=== PATIENT | female | born 1960 | race Caucasian/White ===

== ENCOUNTER → 2018-08-11 18:10 | Outpatient (CLI) | payer OTHER, SELFPAY ==
--- NOTE | 2018-08-11 | DI.MRI.S_ITS ---
PROCEDURE: MR HIP LT WO CON INDICATIONS: LEFT HIP PAIN TECHNIQUE: Noncontrast coronal T1 spin echo and STIR through the bony pelvis. Coronal and axial T2 fast spin echo with fat saturation, sagittal T1 spin echo, and oblique axial T2 fast spin echo with fat saturation through the hip. COMPARISON: [facility] Outside Film, CR, XR PELVIS WITH LATERAL HIP LEFT, 07/17/2018, 15:48. FINDINGS: Image quality: Excellent. Bones and joints: Bone marrow of the pelvic ring and proximal femurs demonstrate normal overall signal. No bone contusions or fractures. There are degenerative subchondral cysts within the superior left acetabulum. No avascular necrosis of the femoral heads. The visualized lower lumbar spine appears normally aligned. Tendons and ligaments: The gluteus medius and minimus tendons appear intact, with mild peritendinous edema at the greater trochanter. No discrete bursal fluid collection. The adjacent proximal iliotibial band also appears intact. The iliopsoas tendon appears intact, without adjacent bursal fluid collections or evidence for impingement syndrome. The origin of the hamstring tendon is intact at the ischial tuberosity, as well as the associated sacrotuberous ligament. The straight and reflected heads of the rectus femoris muscle origin appear intact, as well as the conjoint tendon. The ligamentum teres appears attenuated which may represent sequelae of a mild to moderate sprain or chronic degeneration. Labrum and cartilage: There is mild degenerative tearing in the superior labrum. Cartilage surface of the femoral head demonstrates [id number] superior and thinning. The alpha angle of the femur is within normal limits at less than 55 degrees. Soft tissues: Visualized muscles demonstrate normal bulk and internal signal. Quadratus femoris muscle demonstrates no internal edema to suggest ischiofemoral impingement. The proximal sciatic neurovascular bundle appears normal adjacent to the hamstring tendons. No free pelvic fluid. Bladder wall thickness is normal. Genitourinary structures and bowel loops appear normal where visualized. IMPRESSION: 1. Mild degenerative tearing of the anterosuperior labrum. 2. [id number] cartilage thinning superiorly with degenerative subchondral cysts in the superior labrum suggestive of chondral fissuring. Dictated by: Delfino Boo M.D. on 08/12/2018 at 10:41 Approved by: Delfino Boo M.D. on 08/12/2018 at 10:47
== END ==
PROVIDERS: Visit Provider Orthopaedic Surgery
DX: M25.552 Pain in left hip (principal); S73.192A Other sprain of left hip, initial encounter
CPT/HCPCS: 73721

== ENCOUNTER 2019-06-15 11:30 | Day surgery (SDC) | payer OTHER, SELFPAY ==
[2019-06-15] VITALS (7 sets, daily range): BP systolic 128–164; BP diastolic 71–79; PULSE 47–57; RESP 15–16; TEMP 36.3–37.3; O2SAT 96–100; BMI 40.6
[2019-06-15] MEDS: SODIUM CHLORIDE 0.9% 1,000 ML 200 ML IV (12:11)
--- NOTE | 2019-06-15 12:27 | PM.HP.1 ---
History of Present Illness History of Present Illness Date Patient Seen: 06/15/19 Time Patient Seen: 12:28 Chief complaint: [id number] Narrative: Patient presents for colorectal screening. They had a prior colonoscopy 10 years ago which was normal.. No personal or family history of colon cancer. On further history denies any recent gastrointestinal symptoms. No nausea, vomiting, abdominal pain, loss of appetite, unexplained weight loss, change in bowel habits, diarrhea, constipation, melena, hematochezia, or bright red blood per rectum. Patient History Medical History Atrial fibrillation (Inactive) Atrial fibrillation with normal ventricular rate (Inactive) Atypical chest pain (Inactive) Chest pain (Inactive) Chronic anticoagulation (Inactive) Hematuria (Inactive) Surgical History H/O cardiac radiofrequency ablation (Acute) Family & Social History Social History: household members spouse Tobacco & Substance use: Smoking Status Never smoker alcohol intake never Substance Use Type does not use Meds Home Medications and Allergies Home Medications Medication Instructions Recorded Confirmed Type Eliquis 5 mg PO BID #0 12/21/15 06/15/19 History multivitamin [Multiple Vitamins] 1 tab PO QDAY #0 01/30/17 06/15/19 History pantoprazole 20 mg PO QDAY #0 01/30/17 06/15/19 History amlodipine 5 mg PO DAILY 06/15/19 06/15/19 History aripiprazole 2 mg PO DAILY 06/15/19 06/15/19 History bupropion HCl 300 mg PO QAM 06/15/19 06/15/19 History dofetilide 125 mcg PO Q12H 06/15/19 06/15/19 History lisinopril 40 mg PO DAILY 06/15/19 06/15/19 History Allergies Allergy/AdvReac Type Severity Reaction Status Date / Time No Known Drug Allergies Allergy Verified 06/15/19 11:51 Review of Systems Review of Systems Narrative: A 10 point review of systems is negative except as noted in the HPI Exam Vital Signs (past 8 hours): - 06/15/19 11:58 Temperature 97.4 F L Pulse Rate 57 L Respiratory Rate 15 Blood Pressure 164/79 H Pulse Oximetry 99 Oxygen Delivery Method Room Air Narrative Exam Narrative: General-no acute distress, well nourished HEENT-moist mucous membranes, no scleral icterus Neck-supple, no lymphadenopathy Chest- non labored respirations, clear to auscultation bilaterally Cardiac-regular rate no peripheral edema Abdomen-soft, nontender, non distended Extremities-warm, well perfused Neurological-alert and oriented, no focal deficits Assessment & Plan Assessment and plan (1) Screening for colon cancer: Current visit: Yes Status: Acute Assessment & Plan narrative: The patient requires colorectal screening and colonoscopy is recommended. Technical details were discussed. Risks, benefits, alternatives explained. Risks including but not limited to myocardial infarction, aspiration, bleeding, pain, missed lesion, incomplete examination, need for further radiographic studies, colonic perforation, and need for major abdominal surgery were discussed. All questions were answered to their satisfaction, and they are in agreement with this plan.
[2019-06-15] MEDS: MIDAZOLAM 5 MG/5 ML VIAL IV (12:32)
[2019-06-15] MEDS: fentaNYL 250 MCG/5 ML INJ IV (12:33)
--- NOTE | 2019-06-15 13:15 | PM.OP.ENDO ---
Operative Date/Time/Diagnoses Date of procedure: 06/15/19 Time of procedure: 13:15 Pre-op diagnosis: Screening colonoscopy Post-op diagnosis: same Procedure & Clinicians Study performed: Colonoscopy Same procedure as scheduled: Yes Indications: 58-year-old female last colonoscopy 5 years ago with adenomatous polyps presents for screening Surgeon: Rigo Chavira Procedure Notes SCOAP/Timeout: Performed Procedure in detail: Patient placed in left lateral decubitus position. Time out was performed. Procedural sedation was administered with Versed and Fentanyl. A rectal exam demonstrated no external hemorrhoids no internal masses. Colonoscopy scope was placed into the rectum and advanced through the colon to the cecum. The ileocecal valve was identified. The scope was then slowly withdrawn examining colon thoroughly in all directions. The colonoscopy was notable for the following 1. No masses polyps 2. Grade 1 internal hemorrhoids 3. Quality of prep moderate Scope withdrawal time: 17 Sedation minutes: 43 Findings: internal hemorrhoids Specimen(s): none sent Complications: none Impression: Normal colonoscopy Post-procedure Recommendations: Colonscopy in 10 years Disposition: same day surgery
--- NOTE | 2019-06-15 13:58 | SUR.PHASEI ---
Care assumed from Casey Bernal RN
--- NOTE | 2019-06-15 14:12 | SUR.PHASEII ---
Pt brought to [facility], bed down, locked. brought in. D/C instructions discussed, both voiced an understanding. Pt and both have flat affects. Pt making minimal eye contact.
--- NOTE | 2019-06-15 14:50 | SUR.PHASEII ---
Pt dressed and ready to go, then became nauseated and dry heaving. Dr. Chavira left for the day per his office staff. Dr. Gaytan paged.
--- NOTE | 2019-06-15 15:26 | SUR.PHASEII ---
Patient c/o nausea but refusing any nausea medication. Patient tearful but declines to speak with this nurse about any existing issues. Asked patient if she felt safe at home with her and patient states, yes. Discharged patient home with in stable condition.
== END 2019-06-15 15:29 | disposition home or self-care (01) ==
LOC: ENDO 11:31
PROVIDERS: Visit Provider Surgery
PROC: 0DJD8ZZ Inspection of Lower Intestinal Tract, Via Natural or Artificial Opening Endoscopic (ICD-10-PCS; CPT 45378; principal; 2019-06-15 13:00)
DX: Z12.11 Encounter for screening for malignant neoplasm of colon (principal); Z86.010 Personal history of colon polyps; K64.0 First degree hemorrhoids
CPT/HCPCS: 45378; 99152; J2250; J3010

== ENCOUNTER 2019-07-03 17:30 | Emergency (ER) | payer OTHER, SELFPAY ==
[2019-07-03 17:43] VITALS: BP 136/65; PULSE 67; PULSE 69; RESP 14; RESP 16; TEMP 36.9; O2SAT 100; O2SAT 99
--- NOTE | 2019-07-03 17:44 | ED_ITS ---
HPI - Extremity Injury (Lower) General Chief Complaint: Extremity Injury, Lower Stated Complaint: right ankle injury Time Seen by Provider: 07/03/19 17:43 Source: patient and family Mode of arrival: Ambulatory Limitations: no limitations History of Present Illness HPI Narrative: 58-year-old female nonsmoker with history of hypertension presents with family in the chief complaint of right ankle pain after a mechani stoney injury this afternoon. 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 She denies any numbness, tingling or weakness. She denies any other injury. She has no history of ankle pain or injury prior. She admits to worsening symptoms with ambulation and improvement with rest. MD complaint: ankle injury Onset (ago): hour(s) Type of Injury: inversion Place: street/outdoors Severity: moderate Relieving factors: rest Related Data Home Medications Medication Instructions Recorded Confirmed Eliquis 5 mg PO BID #0 12/21/15 06/15/19 multivitamin [Multiple Vitamins] 1 tab PO QDAY #0 01/30/17 06/15/19 pantoprazole 20 mg PO QDAY #0 01/30/17 06/15/19 amlodipine 5 mg PO DAILY 06/15/19 06/15/19 aripiprazole 2 mg PO DAILY 06/15/19 06/15/19 bupropion HCl 300 mg PO QAM 06/15/19 06/15/19 dofetilide 125 mcg PO Q12H 06/15/19 06/15/19 lisinopril 40 mg PO DAILY 06/15/19 06/15/19 Allergies Allergy/AdvReac Type Severity Reaction Status Date / Time No Known Drug Allergies Allergy Verified 07/03/19 17:45 Review of Systems Constitutional Constitutional: Denies chills, Denies fatigue, Denies fever(s), Denies frequent falls, Denies lethargy and Denies weakness Eyes Eyes: Denies change in vision, Denies eye discharge, Denies irritation and Denies loss of vision ENT Ears, Nose, Mouth, and Throat: Denies change in voice, Denies dizziness, Denies neck pain, Denies sore throat and Denies throat swelling Cardiovascular Cardiovascular: Denies chest pain, Denies irregular heart rhythm, Denies lightheadedness, Denies palpitations, Denies dyspnea, Denies dyspnea on exertion and Denies orthopnea Respiratory Respiratory: Denies cough, Denies dyspnea, Denies dyspnea on exertion and Denies wheezing Gastrointestinal Gastrointestinal: Denies abdominal pain, Denies change in bowel habits, Denies diarrhea, Denies nausea and Denies vomiting Genitourinary Genitourinary: Denies hematuria, Denies flank pain, Denies urinary incontinence and Denies urinary urgency Musculoskeletal Musculoskeletal: Denies back pain, Reports limited range of motion, Denies muscle weakness, Denies neck pain, Denies numbness and Denies tingling Integumentary/Breasts Skin/Breast: Denies pruritus, Denies erythema, Denies rash and Denies wounds Neurologic Neurologic: Denies behavioral changes, Denies confusion, Denies dizziness, Denies frequent falls, Denies loss of vision, Denies numbness, Denies tingling and Denies weakness Psychiatric Psychiatric: Denies anxiety, Denies behavioral changes, Denies confusion, Denies depression, Denies homicidal ideation and Denies suicidal ideation Endocrine Endocrine: Denies fatigue, Denies flushing and Denies palpitations Hematologic/Lymphatic Hematologic/Lymphatic: Denies easy bruising Allergic/Immunologic Allergic/Immunologic: Denies urticaria, Denies throat swelling and Denies wheezing Patient History Medical History Atrial fibrillation (Inactive) Atrial fibrillation with normal ventricular rate (Inactive) Atypical chest pain (Inactive) Chest pain (Inactive) Chronic anticoagulation (Inactive) Hematuria (Inactive) Surgical History H/O cardiac radiofrequency ablation (Acute) Social History household members: spouse Smoking Status: Never smoker alcohol intake: never Smoking Status: Never smoker Substance Use Type: does not use Exam Narrative Exam Narrative: GEN: AOx3 and in mild distress EYES: Pupils are equal, round, and reactive to light and accommodation. Extraoccular muscles are intact bilaterally. There is no subconjunctival hemorrhage or exudate. CHEST: Lungs are clear to auscultation bilaterally and free of wheezes, rales, or rhonchi. Heart rate is regular rhythm, there are no murmurs, clicks, rubs, or gallops. There is no chest wall tenderness. ABD: Abdomen is soft and nontender. There is no guarding or rebound. Bowel sounds are normal in all 4 quadrants. There is no mass or organomegaly. EXT: Full, mildly painful range of motion of right ankle with some tenderness to palpation of the lateral malleolus. Closed, isolated and neurovascularly intact SKIN: Warm, pink, and dry. No erythema or rash Initial Vital Signs Initial Vital Signs: Vital Signs Temperature 98.4 F 07/03/19 17:43 Pulse Rate 69 07/03/19 17:43 Respiratory Rate 16 07/03/19 17:43 Blood Pressure 136/65 07/03/19 17:43 Pulse Oximetry 99 07/03/19 17:43 Procedures Orthopedic Splinting/Casting Injury #1: Side: right Lower Extremity Injury Location: ankle Lower Extremity Immobilizer: Joseluis wrap Post splinting neuro exam: intact Post splinting vascular exam: intact Placed by: Nursing Course Orders Ordered: ED Orders 07/03/19 17:46 XR ankle RT min 3V Stat Vital Signs Vital signs: Vital Signs - 8 hr 07/03/19 17:43 07/03/19 18:42 Temperature 98.4 F Pulse Rate 67 67 Respiratory Rate 14 18 Blood Pressure 136/65 128/58 L Blood Pressure [Right Arm] 136/65 Pulse Oximetry 100 99 MDM - Extremity Injury (Lower) Imaging Data ankle: Radiologist's Impression: [place] [address] XRay Report Signed Patient: Aylin Faye LMR#: [id number] : 1Acct:[id number] Age/Sex: 58 / FDate of Service: 07/03/19 Loc: ED Accession Number: [id number] Procedure: XR ankle RT min 3V Ordering Provider: Dio Pace D.O. PROCEDURE: XR ANKLE RT MIN 3V INDICATIONS: right ankle injury TECHNIQUE: 3 views of the ankle were acquired. COMPARISON: None. FINDINGS: Bones: No fractures or dislocations. Ankle mortise is normally aligned. No suspicious bony lesions. Plantar calcaneal bone spur. Soft tissues: No tibiotalar joint effusion. Achilles tendon appears normal. IMPRESSION: No fracture. No acute osseous lesion. If symptoms and/or clinical suspicion for pathology persists, further assessment with repeat radiographs (7-10 days) or advanced imaging (e.g. CT, MRI or bone scan) may be helpful. Dictated by: Lashonda Jett MD, PhD on 07/03/2019 at 18:08 Approved by: Lashonda Jett MD, PhD on 07/03/2019 at 18:09 Discharge Plan Departure Patient Disposition: Home Clinical Impression: Ankle sprain and strain Discharge Date/Time: 07/03/19 18:43 Instructions: DI for Ankle Sprain Activity Restrictions/Additional Instructions: *You have been diagnosed with [right ankle sprain] *What to do: *Take medications as directed *Follow up with your primary care provider in 2-3 days, call for an appointment. Let them know you were seen in the Emergency Department and that we ask that you be seen in follow up *Return to ER if you should have any new, worsening or concerning symptoms Prescriptions: No Action Eliquis 5 MG tablet 5 mg PO BID Qty: 0 RF: 0 multivitamin [Multiple Vitamins] 1 EACH tablet 1 tab PO QDAY Qty: 0 RF: 0 pantoprazole 20 MG tablet,delayed release (DR/EC) 20 mg PO QDAY Qty: 0 RF: 0 dofetilide 125 mcg Capsule 125 mcg PO Q12H RF: 0 amlodipine 5 mg Tablet 5 mg PO DAILY RF: 0 lisinopril 40 mg Tablet 40 mg PO DAILY RF: 0 bupropion HCl 300 mg Tablet Extended Release 24 Hr 300 mg PO QAM RF: 0 aripiprazole 2 mg Tablet 2 mg PO DAILY RF: 0 Referrals: Ghada Holland [Primary Care Provider] - Stand Alone Forms: Work Release Note
[2019-07-03 18:42] VITALS: BP 128/58; PULSE 67; RESP 18; O2SAT 99
== END 2019-07-03 18:43 | disposition home or self-care (01) ==
PROVIDERS: Emergency Provider Emergency Medicine; PCP Internal Medicine
DX: S93.401A Sprain of unspecified ligament of right ankle, initial encounter (principal); S96.911A Strain of unspecified muscle and tendon at ankle and foot level, right foot, initial encounter
CPT/HCPCS: 73610; 99282; 99283

== ENCOUNTER 2020-02-28 14:53 | Emergency (ER) | payer OTHER, SELFPAY ==
[2020-02-28 14:55] VITALS: BP 184/77; PULSE 60; RESP 17; TEMP 36.5; O2SAT 100; BMI 40.3
--- NOTE | 2020-02-28 15:04 | DI.RAD.S_ITS ---
PROCEDURE: XR SHOULDER LT MIN 2V INDICATIONS: shoulder pain TECHNIQUE: 3 views of the shoulder were acquired. COMPARISON: [facility], CHEST 1 VIEW, 12/21/2015, 12:12. [facility], CHEST 1 VIEW, 06/06/2017, 19:32. [facility], CHEST 1 VIEW, 07/11/2017, 12:47. FINDINGS: Bones: No fractures or dislocations. The acromioclavicular joint is slightly incongruent appearance but appears similar to the prior chest x-ray studies. Visualized ribs appear intact. Soft tissues: There are calcifications along the distal rotator cuff compatible with calcific tendinitis. IMPRESSION: 1. No definite fracture or dislocation. 2. Calcific tendinitis of the distal rotator cuff. 3. Mildly incongruent appearance of the acromioclavicular joint may represent an anatomic variant or sequelae of a prior sprain. The findings are similar to the prior chest x-ray studies. Dictated by: Delfino Boo M.D. on 02/28/2020 at 14:26 Approved by: Delfino Boo M.D. on 02/28/2020 at 14:29
--- NOTE | 2020-02-28 16:14 | ED.UPPEXIN ---
HPI - Extremity Injury (Upper) General Chief Complaint: Extremity Injury, Upper Stated Complaint: left shoulder pain Time Seen by Provider: 02/28/20 15:32 Source: patient and family (Daughter) Mode of arrival: Ambulatory Limitations: no limitations History of Present Illness HPI narrative: This is a 59-year-old female who comes in with complaint of left shoulder pain. Patient states she has had intermittent pain for a prolonged period but over the last 1-2 weeks she has had significantly increased pain with popping with movement. She did see her primary care who did a physical exam she states that there was no imaging. They gave her muscle relaxant and Tylenol which she states has made her sleepy but otherwise not helping her pain. She is currently in a shoulder sling she does try to do some gentle [id number] exercises prescribed by her physician but states that it makes it hurt more. Patient states she has not had any swelling were extremity, no redness or other skin changes, no bruising. No recent trauma that she is aware of no remote trauma. She has not had any interventions to the shoulder. She describes it as particularly painful in the shoulder region but does have some muscle spasm and discomfort in the soft tissue of the trapezius area and down her arm. She denies any numbness tingling or weakness in the arm but has pain with movement the arm. She does not have any increased pain with movement of her neck. Related Data Home Medications Medication Instructions Recorded Confirmed Eliquis 5 mg PO BID #0 12/21/15 06/15/19 multivitamin [Multiple Vitamins] 1 tab PO QDAY #0 01/30/17 06/15/19 pantoprazole 20 mg PO QDAY #0 01/30/17 06/15/19 amlodipine 5 mg PO DAILY 06/15/19 06/15/19 aripiprazole 2 mg PO DAILY 06/15/19 06/15/19 bupropion HCl 300 mg PO QAM 06/15/19 06/15/19 dofetilide 125 mcg PO Q12H 06/15/19 06/15/19 lisinopril 40 mg PO DAILY 06/15/19 06/15/19 Previous Rx's Medication Instructions Recorded diclofenac sodium [Voltaren] 2 gram TOP QID PRN #20 gram 02/28/20 hydrocodone-acetaminophen [[place]] 1 tab PO Q6H PRN #10 tab 02/28/20 Allergies Allergy/AdvReac Type Severity Reaction Status Date / Time No Known Drug Allergies Allergy Verified 07/03/19 17:45 Patient History Medical History (Updated 02/28/20 @ 16:39 by Amy Brown DO) Atrial fibrillation (Inactive) Atrial fibrillation with normal ventricular rate (Inactive) Atypical chest pain (Inactive) Chest pain (Inactive) Chronic anticoagulation (Inactive) Hematuria (Inactive) Surgical History H/O cardiac radiofrequency ablation (Acute) Social History household members: spouse Smoking Status: Never smoker alcohol intake: never Smoking Status: Never smoker alcohol intake frequency: 0-2 drinks per day Substance Use Type: does not use Exam Narrative Exam Narrative: GENERAL: Alert and oriented x three, obese female in mild to moderate discomfort. HEENT: Head normocephalic, atraumatic, EOMI, pupils reactive, face symmetric, moist mucous membranes NECK: Supple, full range of motion CARDIOVASCULAR: Regular rate and rhythm without murmurs, rubs or gallops. RESPIRATORY: Breath sounds equal bilaterally, no wheezes rales or rhonchi. ABDOMEN: Soft, nontender. Normoactive bowel sounds all 4 quadrants. No guarding or rebound, rigidity, no mass : No CVA tenderness EXTREMITIES: Decreased range of motion of the left shoulder, patient has point tenderness over the AC joint on the left, she has some soft tissue discomfort although not as extreme in the trapezius and latissimus dorsi, she has some very mild pain in the deltoid region, she does not have any bony tenderness of the wrist, forearm or elbow, no tenderness of the C-spine, negative Spurling's, no clubbing or edema. [employer] is equal bilaterally. Neurovascularly intact with 2+ pulses bilaterally in the radial and normal sensation throughout. NEUROLOGICAL: Cranial nerves II through XII grossly intact. Moving all extremities SKIN: Warm, dry, no petechiae, no rashes or lesions. Initial Vital Signs Initial Vital Signs: Vital Signs Temperature 97.7 F 02/28/20 14:55 Pulse Rate 60 02/28/20 14:55 Respiratory Rate 17 02/28/20 14:55 Blood Pressure 184/77 H 10/11/20 14:55 Pulse Oximetry 100 10/11/20 14:55 Course Orders Ordered: ED Orders 02/28/20 15:04 XR shoulder LT min 2V Stat Discontinued Medications Hydrocodone Bitart/Acetaminophen ([place] 5/325) 1 tab PO NOW ONE Stop: 02/28/20 16:32 Last Admin: 02/28/20 16:44 Dose: 1 tab Documented by: LESLIE Vital Signs Vital signs: Vital Signs - 8 hr 02/28/20 14:55 02/28/20 16:44 Temperature 97.7 F Pulse Rate 60 64 Respiratory Rate 17 18 Blood Pressure 184/77 H 146/71 H Pulse Oximetry 100 100 MDM - Extremity Injury (Upper) Imaging Data shoulder xray: Radiologist's Impression: [address] [address] XRay Report Signed Patient: Aylin Faye LMR#: [id number] : 1Acct:[id number] Age/Sex: 59 / FDate of Service: 02/28/20 Loc: ED Accession Number: [id number] Procedure: XR shoulder LT min 2V Ordering Provider: Amy Brown D.O. PROCEDURE: XR SHOULDER LT MIN 2V INDICATIONS: shoulder pain TECHNIQUE: 3 views of the shoulder were acquired. COMPARISON: [facility], CHEST 1 VIEW, 12/21/2015, 12:12. [facility], CHEST 1 VIEW, 06/06/2017, 19:32. [facility], CHEST 1 VIEW, 07/11/2017, 12:47. FINDINGS: Bones: No fractures or dislocations. The acromioclavicular joint is slightly incongruent appearance but appears similar to the prior chest x-ray studies. Visualized ribs appear intact. Soft tissues: There are calcifications along the distal rotator cuff compatible with calcific tendinitis. IMPRESSION: 1. No definite fracture or dislocation. 2. Calcific tendinitis of the distal rotator cuff. 3. Mildly incongruent appearance of the acromioclavicular joint may represent an anatomic variant or sequelae of a prior sprain. The findings are similar to the prior chest x-ray studies. Dictated by: Delfino Boo M.D. on 02/28/2020 at 14:26 Approved by: Delfino Boo M.D. on 02/28/2020 at 14:29 MDM Narrative Medical decision making narrative: Discussed with patient suspect a more orthopedic finding, she does have some calcifications consistent with a tendinitis and also some changes on her x-ray consistent with her pain at the AC joint. Plan for a short course of narcotic pain medication, Voltaren topically as she does have a history of AFib and is on anticoagulants. Patient was given referral for Orthopedic surgery as well as follow-up with her primary care and we discussed the long-term she may need some additional imaging possibly. We did discuss the possibility of frozen shoulder which she was already aware of and that she should continue to do gentle movement as tolerated as well as icing as needed. Discharge Plan Departure Patient Disposition: Home Clinical Impression: AC joint pain Qualifiers: Laterality: left Qualified Code(s): M25.512 - Pain in left shoulder Left shoulder pain Qualifiers: Chronicity: unspecified Qualified Code(s): M25.512 - Pain in left shoulder Discharge Date/Time: 02/28/20 16:54 Instructions: DI for Shoulder Pain Activity Restrictions/Additional Instructions: Follow-up with your physician and/or orthopedic surgery in the next week. Call for an appointment. Continue home medications as prescribed. You may use Voltaren topically to the affected area as prescribed. If needed you may take 1-2 tablets [place] every 6 hours as needed for pain. This medication can make you very sleepy do not drive, perform hazardous activities or make any major decisions while taking this medication. It is also constipating so I would recommend taking a stool softener while taking it. OK to use ice pack on the affected body part. Use for 15-20 minutes each time, for 5-6x per day. If you develop worsening pain, numbness, tingling, discoloration of the affected body part, loosen sling, and either see your doctor for an urgent re-assessment, or return to the Emergency Department. Return to the Emergency Department for any new or worsening symptoms. Prescriptions: New hydrocodone-acetaminophen [[place]] 5-325 mg tablet 1 tab PO Q6H PRN (Reason: pain) Qty: 10 RF: 0 diclofenac sodium [Voltaren] 1 % gel 2 gram TOP QID PRN (Reason: pain) Qty: 20 RF: 0 No Action Eliquis 5 MG tablet 5 mg PO BID Qty: 0 RF: 0 multivitamin [Multiple Vitamins] 1 EACH tablet 1 tab PO QDAY Qty: 0 RF: 0 pantoprazole 20 MG tablet,delayed release (DR/EC) 20 mg PO QDAY Qty: 0 RF: 0 dofetilide 125 mcg Capsule 125 mcg PO Q12H RF: 0 amlodipine 5 mg Tablet 5 mg PO DAILY RF: 0 lisinopril 40 mg Tablet 40 mg PO DAILY RF: 0 bupropion HCl 300 mg Tablet Extended Release 24 Hr 300 mg PO QAM RF: 0 aripiprazole 2 mg Tablet 2 mg PO DAILY RF: 0 Referrals: Ghada Holland [Primary Care Provider] - Eduardo Ireland MD [Physician] - Stand Alone Forms: Work Release Note
[2020-02-28 16:44] VITALS: BP 146/71; PULSE 64; RESP 18; O2SAT 100
[2020-02-28] MEDS: HYDROCODONE/ACET 5/325 TABLET 1 TAB PO (16:44)
--- NOTE | 2020-02-28 16:54 | PC.NURSE ---
work note given to patient
== END 2020-02-28 16:54 | disposition home or self-care (01) ==
PROVIDERS: Emergency Provider Emergency Medicine; PCP Internal Medicine
DX: M25.512 Pain in left shoulder (principal)
CPT/HCPCS: 73030; 99283

== ENCOUNTER → 2020-10-31 15:26 | Outpatient (CLI) | payer OTHER, SELFPAY ==
--- NOTE | 2020-10-31 | DI.MRI.S_ITS ---
PROCEDURE: MR HIP LT WO CON INDICATIONS: Pain in left hip pain TECHNIQUE: Noncontrast coronal T1 spin echo and STIR through the bony pelvis. Coronal and axial T2 fast spin echo with fat saturation, sagittal T1 spin echo, and oblique axial T2 fast spin echo with fat saturation through the hip. COMPARISON: [facility], MR, MR HIP LT WO CON, 08/11/2018, 18:21. FINDINGS: Bones and joints: No fracture identified. Sacroiliac joints are unremarkable in signal intensity. There is lower lumbar spondylosis and facet arthropathy. No pathologic hip joint effusion. Bilateral hip joint degeneration with redemonstrated subchondral cystic change in the left acetabulum. No evidence of osteonecrosis. Tendons and ligaments: Minimal insertional gluteus medius and minimus tendinopathy with adjacent soft tissue edema. Proximal iliotibial band intact. Iliopsoas tendon intact. Mild thickening of the hamstring origin which is technically age indeterminate suggestive of low-grade tendinopathy. The straight and reflected heads of the rectus femoris muscle origin appear intact Ligamentum teres appears intact where visualized. Labrum: Ill-defined anterosuperior labral tear. There is an associated 3 mm paralabral cyst seen on image 12/7. Adjacent partial-thickness chondral loss is present as well as degenerative spurring and sclerosis in the acetabulum. The alpha angle of the femur is grossly within normal limits at less than 55 degrees, however suboptimal evaluation due to obliquity on the axial oblique pulse sequence. Soft tissues: Visualized muscles demonstrate normal bulk and internal signal. Quadratus femoris muscle normal. Proximal sciatic neurovascular bundle appears normal adjacent to the hamstring tendons. No free pelvic fluid. Bladder normal. Genitourinary structures and bowel loops appear normal where visualized. IMPRESSION: Anterosuperior labral tear, with associated 3 mm paralabral cyst. Adjacent partial-thickness chondral loss and degenerative changes in the acetabulum. Overall this appears grossly unchanged since the prior study, although the paralabral cyst is new. Mild hamstring origin tendinopathy, technically age indeterminate. No interval change Minimal insertional gluteus medius and minimus tendinopathy. This appears new since the prior study. Dictated by: Rajesh Guerrero M.D. on 10/31/2020 at 16:46 Approved by: Rajesh Guerrero M.D. on 10/31/2020 at 16:55
== END ==
PROVIDERS: PCP Internal Medicine; Referring Provider Internal Medicine; Visit Provider Internal Medicine
DX: M25.552 Pain in left hip (principal); S73.192A Other sprain of left hip, initial encounter; M24.852 Other specific joint derangements of left hip, not elsewhere classified
CPT/HCPCS: 73721

== ENCOUNTER 2021-01-18 00:14 | Emergency (ER) | payer OTHER, SELFPAY ==
[2021-01-18 00:47] VITALS: BP 159/72; PULSE 64; RESP 18; TEMP 36.6; O2SAT 100
--- NOTE | 2021-01-18 03:02 | ED.EXTPRO ---
HPI - Extremity Problem General Chief complaint: Extremity Problem,Nontraumatic Stated complaint: Leg pain Time Seen by Provider: 01/18/21 03:02 Source: patient Mode of arrival: Wheelchair Limitations: no limitations History of Present Illness HPI Narrative: 60-year-old woman with history of anxiety depression currently on Eliquis, hypertension with a known left labral tear as well as left hip osteoarthritis and is aware that she likely will need a hip replacement at some point in the near future. Apparently she woke up at 11:00 a.m. this evening with severe pain in the groin radiating to the mid thigh. She called 911 for transport to the emergency department because of the severe spasm. She did not try any [id number] pain medication. She stated that she has had similar episodes before however none have been quite this severe. She describes no fevers, no rashes, no unusual activity earlier in the day and no specific trauma to the hip in the last days. She has recently had no abdominal pain, chest pain, palpitations, vomiting or diarrhea Related Data Home Medications Medication Instructions Recorded Confirmed apixaban 5 mg tablet (Eliquis) 5 mg PO BID #0 12/21/15 06/15/19 multivitamin (Multiple Vitamins) 1 tab PO QDAY #0 01/30/17 06/15/19 pantoprazole 20 mg tablet,delayed 20 mg PO QDAY #0 01/30/17 06/15/19 release amlodipine 5 mg tablet 5 mg PO DAILY 06/15/19 06/15/19 aripiprazole 2 mg tablet 2 mg PO DAILY 06/15/19 06/15/19 bupropion HCl 300 mg 24 hr tablet, 300 mg PO QAM 06/15/19 06/15/19 extended release dofetilide 125 mcg capsule 125 mcg PO Q12H 06/15/19 06/15/19 lisinopril 40 mg tablet 40 mg PO DAILY 06/15/19 06/15/19 Previous Rx's Medication Instructions Recorded diclofenac sodium 1 % topical gel 2 gram TOP QID PRN #20 gram 02/28/20 (Voltaren) hydrocodone 5 mg-acetaminophen 325 1 tab PO Q6H PRN #10 tab 02/28/20 mg tablet ([place]) Allergies Allergy/AdvReac Type Severity Reaction Status Date / Time No Known Drug Allergies Allergy Verified 07/03/19 17:45 Review of Systems Review of Systems Narrative: Remainder of complete review of systems is otherwise unremarkable except for that included in the HPI. Patient History Medical History Atrial fibrillation Atrial fibrillation with normal ventricular rate Atypical chest pain Chest pain Chronic anticoagulation Hematuria Surgical History H/O cardiac radiofrequency ablation Social History household members: spouse Smoking Status: Never smoker alcohol intake: never Smoking Status: Never smoker alcohol intake frequency: 0-2 drinks per day Substance Use Type: does not use Exam Narrative Exam Narrative: General: Alert appropriate in no acute distress Respiratory: Able to speak in full sentences, no obvious respiratory distress Skin: No obvious rashes, warm and dry Neurologic: Grossly intact no obvious asymmetries or abnormalities Psych: appropriate insight and affect, cooperative Extremity: Left groin is examined. There is no reproducible pain, no inguinal hernia, no inguinal adenopathy, no rashes. No muscle spasm no abscess and no pain with internal external rotation of the hip. Initial Vital Signs Initial Vital Signs: Vital Signs Temperature 97.9 F 01/18/21 00:47 Pulse Rate 64 01/18/21 00:47 Respiratory Rate 18 01/18/21 00:47 Blood Pressure 159/72 H 01/18/21 00:47 Pulse Oximetry 100 01/18/21 00:47 Course Vital Signs Vital signs: Vital Signs - 8 hr 01/18/21 00:47 01/18/21 03:34 Temperature 97.9 F Pulse Rate 64 63 Respiratory Rate 18 18 Blood Pressure 159/72 H 149/74 H Pulse Oximetry 100 99 MDM - Extremity (Nontraumatic) MDM Narrative Medical decision making narrative: 60-year-old woman awoke from sleep with severe left groin pain that resolved spontaneously within approximately 2 hours. By the time of my exam in the emergency department she is completely pain-free. There is no evidence of inflammation, swelling to suggest DVT. No obvious abscess or cellulitis. No tenderness with internal or external rotation. No inguinal adenopathy. I do not have a full explanation for her pain however I am not finding any additional reason for further workup, imaging and no evidence of life-threatening findings at this time. As she is pain-free currently she is safe for home discharge. I encouraged her to follow-up with her primary care physician. Discharge Plan Departure Patient Disposition: Home Clinical Impression: Left groin pain Instructions: DI for Groin Strain Activity Restrictions/Additional Instructions: Thank you for coming in this evening The severe pain that you described in your inner thigh certainly sounds concerning. Your exam is very reassuring. There is no evidence of a hernia, infection, blood clot or acute nerve injury. I suspect that the pain is related to your degenerative hip arthritis and may be related to the labral tear that you have on that left side as well. The next time it happens I would recommend trying either ibuprofen or Tylenol to see if that can make a difference I would also recommend that you follow-up with your primary care physician. Prescriptions: No Action Eliquis 5 MG tablet 5 mg PO BID Qty: 0 RF: 0 multivitamin [Multiple Vitamins] 1 EACH tablet 1 tab PO QDAY Qty: 0 RF: 0 pantoprazole 20 MG tablet,delayed release (DR/EC) 20 mg PO QDAY Qty: 0 RF: 0 dofetilide 125 mcg Capsule 125 mcg PO Q12H RF: 0 amlodipine 5 mg Tablet 5 mg PO DAILY RF: 0 lisinopril 40 mg Tablet 40 mg PO DAILY RF: 0 bupropion HCl 300 mg Tablet Extended Release 24 Hr 300 mg PO QAM RF: 0 aripiprazole 2 mg Tablet 2 mg PO DAILY RF: 0 hydrocodone-acetaminophen [[place]] 5-325 mg tablet 1 tab PO Q6H PRN (Reason: pain) Qty: 10 RF: 0 diclofenac sodium [Voltaren] 1 % gel 2 gram TOP QID PRN (Reason: pain) Qty: 20 RF: 0 Referrals: Ghada Holland MD [Primary Care Provider] - Stand Alone Forms: Work Release Note
[2021-01-18 03:34] VITALS: BP 149/74; PULSE 63; RESP 18; O2SAT 99
== END 2021-01-18 03:35 | disposition home or self-care (01) ==
PROVIDERS: Emergency Provider Emergency Medicine; PCP Internal Medicine
DX: R10.30 Lower abdominal pain, unspecified (principal)
CPT/HCPCS: 99281

== ENCOUNTER 2021-06-10 11:58 | Emergency (ER) | payer OTHER, SELFPAY ==
[2021-06-10] VITALS (32 sets, daily range): BP systolic 108–133; BP diastolic 67–92; PULSE 58–137; RESP 9–22; TEMP 36.9; O2SAT 95–100; BMI 40.3
--- NOTE | 2021-06-10 12:11 | ED_ITS ---
HPI - General Adult General Chief complaint: Arrhythmia/Palpitations Stated complaint: Afib and chest discomfort Time Seen by Provider: 06/10/21 12:05 Source: patient Mode of arrival: EMS History of Present Illness HPI narrative: Patient is a 60-year-old female. Unknown history of paroxysmal atrial fibrillation. She is on Eliquis. She takes it twice a day. States she has not missed a dose in the past month. She is also on dofetilide. She states she did miss a dose of this last week. This morning she woke up and had mid sternal chest discomfort which she states is very consistent with when she goes into atrial fibrillation. She currently does not have the chest discomfort. Some lightheadedness. No shortness of breath. She states she cannot feel the palpitations currently. She has had cardioversions in the past. There have been instances where it passed cardioversions have not been successful. No interventions prior to arrival. Related Data Home Medications Medication Instructions Recorded Confirmed apixaban 5 mg tablet (Eliquis) 5 mg PO BID #0 12/21/15 06/15/19 multivitamin (Multiple Vitamins) 1 tab PO QDAY #0 01/30/17 06/15/19 pantoprazole 20 mg tablet,delayed 20 mg PO QDAY #0 01/30/17 06/15/19 release amlodipine 5 mg tablet 5 mg PO DAILY 06/15/19 06/15/19 aripiprazole 2 mg tablet 2 mg PO DAILY 06/15/19 06/15/19 bupropion HCl 300 mg 24 hr tablet, 300 mg PO QAM 06/15/19 06/15/19 extended release dofetilide 125 mcg capsule 125 mcg PO Q12H 06/15/19 06/15/19 lisinopril 40 mg tablet 40 mg PO DAILY 06/15/19 06/15/19 Previous Rx's Medication Instructions Recorded diclofenac sodium 1 % topical gel 2 gram TOP QID PRN #20 gram 02/28/20 (Voltaren) hydrocodone 5 mg-acetaminophen 325 1 tab PO Q6H PRN #10 tab 02/28/20 mg tablet ([place]) Allergies Allergy/AdvReac Type Severity Reaction Status Date / Time No Known Drug Allergies Allergy Verified 07/03/19 17:45 Review of Systems Constitutional Constitutional: Reports system reviewed and no additional complaints, except as documented Cardiovascular Cardiovascular: Reports as per HPI and Reports system reviewed and no additional complaints, except as documented Respiratory Respiratory: Reports as per HPI and Reports system reviewed and no additional complaints, except as documented Gastrointestinal Gastrointestinal: Reports system reviewed and no additional complaints, except as documented Musculoskeletal Musculoskeletal: Reports system reviewed and no additional complaints, except as documented Integumentary/Breasts Skin/Breast: Reports system reviewed and no additional complaints, except as documented Neurologic Neurologic: Reports system reviewed and no additional complaints, except as documented Hematologic/Lymphatic On Anticoagulants: Yes Patient History Medical History (Updated 06/10/21 @ 14:24 by Adriano Mclaughlin DO) Atrial fibrillation Atrial fibrillation with normal ventricular rate Atypical chest pain Chest pain Chronic anticoagulation Hematuria Surgical History H/O cardiac radiofrequency ablation Social History household members: spouse Smoking Status: Never smoker alcohol intake: never Smoking Status: Never smoker alcohol intake frequency: 0-2 drinks per day Substance Use Type: does not use Exam Initial Vital Signs Initial Vital Signs: Vital Signs Temperature 98.4 F 06/10/21 11:35 Pulse Rate 136 H 06/10/21 11:35 Respiratory Rate 18 06/10/21 11:35 Blood Pressure 120/86 06/10/21 11:35 Pulse Oximetry 98 06/10/21 11:35 HENMT Head: normal to inspection and normocephalic Resp Effort & Inspection: normal respiratory effort Auscultation: clear to auscultation bilaterally Cardio Rate: tachycardic Rhythm: abnormal rhythm GI Inspection: normal to inspection Skin General: no rashes or lesions noted Neuro General: patient alert, patient awake and moves all extremities Extrem General: normal to inspection and capillary refill normal Psych Appearance: grossly normal Procedures Cardioversion Consent Signed: Yes Indication: AFib with RVR Stability: Stable Number of attempts (shocks): 1 Joules used: 120 Cardiac rhythm post-cardioversion: Sinus rhythm Procedural Sedation Consent signed: Yes Time out performed: Yes Indication: cardioversion Presedation Evaluation: See note ASA Class: II Mallampati Airway Classification: Class II Preparation: laboratory monitor applied, pulse oximeter, capnometry used, supplemental O2 applied, suction/airway equipment at bedside and IV secured Fentanyl: IV Fentanyl dose (mcg): 12 IV Propofol dose (mg): 100 Intraservice time/total sedation time (min): 10 ED Sedation Level: Moderate (Concious) Patient Tolerated Procedure: Well Complications: hypoventilation Interventions: Airway repositioned and Assist by BVM Scores GCS [place] coma scale eye opening: Spontaneous [place] coma scale verbal response: Orientated [place] coma scale motor response: Obey commands T[place]o coma scale total score: 15 Course Orders Ordered: ED Orders 06/10/21 12:05 EKG-12 Lead Stat 06/10/21 12:12 Basic Metabolic Panel Stat COVID19 -Nasal swab/Pre-Proc Stat Complete Blood Count AUTO DIFF Stat Partial Thromboplastin Time Stat Prothrombin Time INR Stat 06/10/21 13:23 EKG-12 Lead Stat Discontinued Medications Fentanyl (Fentanyl 100 Mcg/2 Ml Inj) 12.5 mcg IV NOW ONE Stop: 06/10/21 12:12 Last Admin: 06/10/21 13:14 Dose: 12.5 mcg Documented by: RENEE Sodium Chloride (Normal Saline 0.9%) 1,000 mls @ 125 mls/hr IV CONT ENDY Last Infusion: 06/10/21 14:00 Dose: 0 mls/hr Documented by: Admin: 06/10/21 12:40 Dose: 125 mls/hr Documented by: RENEE Propofol (Propofol 200 Mg/20 Ml Vial) 100 mg IV NOW ONE Stop: 06/10/21 12:12 Last Admin: 06/10/21 13:18 Dose: 100 mg Documented by: RENEE Vital Signs Vital signs: Vital Signs - 8 hr 06/10/21 11:35 06/10/21 12:05 06/10/21 12:06 Temperature 98.4 F Pulse Rate 136 H 134 H 131 H Respiratory Rate 18 14 12 Blood Pressure 120/86 120/86 Pulse Oximetry 98 100 06/10/21 12:10 06/10/21 12:15 06/10/21 12:20 Temperature Pulse Rate 135 H 129 H 135 H Respiratory Rate 12 9 L 17 Blood Pressure 108/92 H Pulse Oximetry 100 100 100 06/10/21 12:25 06/10/21 12:30 06/10/21 12:35 Temperature Pulse Rate 130 H 125 H 134 H Respiratory Rate 17 16 18 Blood Pressure 112/86 Pulse Oximetry 100 99 100 06/10/21 12:42 06/10/21 12:43 06/10/21 12:45 Temperature Pulse Rate 100 H 110 H 130 H Respiratory Rate 12 Blood Pressure 126/89 131/77 Pulse Oximetry 100 100 100 06/10/21 12:50 06/10/21 12:55 06/10/21 13:00 Temperature Pulse Rate 133 H 131 H 134 H Respiratory Rate Blood Pressure Pulse Oximetry 100 100 100 06/10/21 13:01 06/10/21 13:05 06/10/21 13:10 Temperature Pulse Rate 133 H 136 H 135 H Respiratory Rate Blood Pressure 133/67 Pulse Oximetry 100 100 100 06/10/21 13:12 06/10/21 13:15 06/10/21 13:17 Temperature Pulse Rate 128 H 137 H 130 H Respiratory Rate 22 16 Blood Pressure 132/77 117/82 119/85 Pulse Oximetry 99 100 100 06/10/21 13:20 06/10/21 13:24 06/10/21 13:25 Temperature Pulse Rate 65 60 58 L Respiratory Rate 14 11 L 15 Blood Pressure 133/88 125/81 Pulse Oximetry 96 100 95 06/10/21 13:30 06/10/21 13:35 06/10/21 13:40 Temperature Pulse Rate 60 62 60 Respiratory Rate 12 16 16 Blood Pressure 121/79 122/81 117/71 Pulse Oximetry 100 100 99 06/10/21 13:45 06/10/21 13:49 06/10/21 13:50 Temperature Pulse Rate 60 61 59 L Respiratory Rate 15 19 13 Blood Pressure 118/73 124/76 Pulse Oximetry 100 100 99 06/10/21 14:00 06/10/21 14:30 Temperature Pulse Rate 63 60 Respiratory Rate 13 13 Blood Pressure 128/83 119/69 Pulse Oximetry 97 100 Medical Decision Making Medical Records Medical records reviewed: Yes I reviewed the patient's medical records. Lab Data Lab results reviewed: Yes I reviewed the patient's lab results. Result diagrams: 06/10/21 12:12 06/10/21 12:12 Labs: Lab Results 06/10/21 06/10/21 06/10/21 Range/Units 12:12 12:12 12:12 WBC 4.4 L (4.5-11.0) X10^3/uL RBC 4.33 (4.0-5.2) X10^6/uL Hgb 11.5 L (12.0-16.0) g/dL Hct 35.1 L (36-46) % MCV 81.1 (80-100) fL MCH 26.6 (26-34) PG MCHC 32.8 (30-36) % RDW 14.4 (11.6-14.8) % Plt Count 260 (150-400) X10^3/uL Neut % (Auto) 58.1 (50-75) % Lymph % (Auto) 27.4 (25-40) % [place] % (Auto) 9.4 (3-14) % Eos % (Auto) 4.3 H (2-4) % Baso % (Auto) 0.8 (0-2) % Neut # (Auto) 2600 (7543-9346) /uL Lymph # (Auto) 1200 (3699-4333) /uL [place] # (Auto) 400 (0-900) /uL Eos # (Auto) 200 (0-450) /uL Baso # (Auto) 0 (0-100) /uL PT 13.2 H (10.1-12.7) SECONDS INR 1.2 (0.9-1.3) APTT 34 (26.4-36.2) SECONDS Sodium (137-145) mmol/L Potassium (3.4-5.1) mmol/L Chloride (98-107) mmol/L Carbon Dioxide (22-32) mmol/L BUN (7-17) mg/dL Creatinine (0.52-1.04) mg/dL Estimated GFR (>60) mL/min BUN/Creatinine Ratio (6-22) Glucose (80-110) mg/dL Calcium (8.4-10.2) mg/dL SARS-CoV-2 (PCR) Negative (Negative) 06/10/21 Range/Units 12:12 WBC (4.5-11.0) X10^3/uL RBC (4.0-5.2) X10^6/uL Hgb (12.0-16.0) g/dL Hct (36-46) % MCV (80-100) fL MCH (26-34) PG MCHC (30-36) % RDW (11.6-14.8) % Plt Count (150-400) X10^3/uL Neut % (Auto) (50-75) % Lymph % (Auto) (25-40) % [place] % (Auto) (3-14) % Eos % (Auto) (2-4) % Baso % (Auto) (0-2) % Neut # (Auto) (0321-9665) /uL Lymph # (Auto) (5125-0879) /uL [place] # (Auto) (0-900) /uL Eos # (Auto) (0-450) /uL Baso # (Auto) (0-100) /uL PT (10.1-12.7) SECONDS INR (0.9-1.3) APTT (26.4-36.2) SECONDS Sodium 141 (137-145) mmol/L Potassium 4.5 (3.4-5.1) mmol/L Chloride 106 (98-107) mmol/L Carbon Dioxide 31 (22-32) mmol/L BUN 21 H (7-17) mg/dL Creatinine 0.94 (0.52-1.04) mg/dL Estimated GFR > 60.0 (>60) mL/min BUN/Creatinine Ratio 22.3 H (6-22) Glucose 101 (80-110) mg/dL Calcium 9.3 (8.4-10.2) mg/dL SARS-CoV-2 (PCR) (Negative) Point of Care Testing Test Results Not applicable Point of care testing: Point of Care Testing Test Results Not applicable ECG Data Attestation: I personally reviewed and interpreted this ECG as follows: Interpretation: Atrial fibrillation Ventricular rate 128 Normal axis Normal QRS Normal QTC No ST T wave changes Post cardioversion Sinus rhythm Ventricular rate is 60 Normal axis Normal QRS Normal QTC No ST T wave changes MDM Narrative Medical decision making narrative: Patient has a history of AFib. She is anticoagulated. Symptoms started this morning. Discussed risks and benefits of rate control versus rhythm control and patient opted for rhythm control. She was sedated and cardioverted without incident as described above. Patient will continue her medications and contact her other spatial scientist for follow-up. She expressed understanding and agreement. Discharge Plan Departure Patient Disposition: Home Clinical Impression: Atrial fibrillation Instructions: DI for Cardioversion Activity Restrictions/Additional Instructions: Take all of your medications as directed. Contact your other spatial scientist for a follow-up. Return to the emergency department for any new or worsening symptoms. Prescriptions: No Action Eliquis 5 MG tablet 5 mg PO BID Qty: 0 0RF multivitamin [Multiple Vitamins] 1 EACH tablet 1 tab PO QDAY Qty: 0 0RF pantoprazole 20 MG tablet,delayed release (DR/EC) 20 mg PO QDAY Qty: 0 0RF dofetilide 125 mcg Capsule 125 mcg PO Q12H 0RF amlodipine 5 mg Tablet 5 mg PO DAILY 0RF lisinopril 40 mg Tablet 40 mg PO DAILY 0RF bupropion HCl 300 mg Tablet Extended Release 24 Hr 300 mg PO QAM 0RF aripiprazole 2 mg Tablet 2 mg PO DAILY 0RF hydrocodone-acetaminophen [[place]] 5-325 mg tablet 1 tab PO Q6H PRN (Reason: pain) Qty: 10 0RF diclofenac sodium [Voltaren] 1 % gel 2 gram TOP QID PRN (Reason: pain) Qty: 20 0RF Rx Instructions: apply to left shoulder with single hand. Referrals: Ghada Holland MD [Primary Care Provider] -
[2021-06-10 12:19] LABS: Add Manual Diff / Slide Review NO; Basophils Absolute Auto 0 /uL (0-100); Basophils Percent Auto 0.8 % (0-2); Eosinophils Absolute Auto 200 /uL (0-450); Eosinophils Percent Auto 4.3 % (2-4); Hematocrit 35.1 % (36-46); Hemoglobin 11.5 g/dL (12.0-16.0); Lymphocytes Absolute Auto 1200 /uL (1100-4500); Lymphocytes Percent Auto 27.4 % (25-40); Mean Corpuscular HGB Conc 32.8 % (30-36); Mean Corpuscular Hemoglobin 26.6 PG (26-34); Mean Corpuscular Volume 81.1 fL (80-100); Monocytes Absolute Auto 400 /uL (0-900); Monocytes Percent Auto 9.4 % (3-14); Neutrophils Absolute Auto 2600 /uL (1500-7000); Neutrophils Percent Auto 58.1 % (50-75); Platelet Count 260 X10^3/uL (150-400); Red Blood Cell Count 4.33 X10^6/uL (4.0-5.2); Red Cell Distribution Width 14.4 % (11.6-14.8); White Blood Cell Count 4.4 X10^3/uL (4.5-11.0)
[2021-06-10 12:29] LABS: INR 1.2 (0.9-1.3); Prothrombin Time 13.2 SECONDS (10.1-12.7)
[2021-06-10 12:31] LABS: BUN Creatinine Ratio 22.3 (6-22); Blood Urea Nitrogen 21 mg/dL (7-17); Calcium 9.3 mg/dL (8.4-10.2); Carbon Dioxide 31 mmol/L (22-32); Chloride 106 mmol/L (98-107); Estimated Glomerular Filt Rate > 60.0 mL/min (>60); Glucose 101 mg/dL (80-110); HEMOLYSIS < 15 (0-50); PTT Partial Thromboplastin Tim 34 SECONDS (26.4-36.2); Potassium 4.5 mmol/L (3.4-5.1); Sodium 141 mmol/L (137-145)
[2021-06-10 12:34] LABS: COVID19 -Nasal RAPID Negative (Negative)
[2021-06-10] MEDS: SODIUM CHLORIDE 0.9% 1,000 ML 125 ML IV (12:40)
[2021-06-10] MEDS: fentaNYL 100 MCG/2 ML INJ 12.5 MCG IV (13:14)
[2021-06-10] MEDS: propofoL 200 MG/20 ML VIAL 100 MG IV (13:18)
== END 2021-06-10 14:43 | disposition home or self-care (01) ==
PROVIDERS: Emergency Provider Emergency Medicine; PCP Internal Medicine
DX: I48.91 Unspecified atrial fibrillation (principal); Z79.01 Long term (current) use of anticoagulants; Z20.822 Contact with and (suspected) exposure to COVID-19
CPT/HCPCS: 80048; 85025; 85610; 85730; 87635; 92960; 93005; 93010; 96361; 96374; 99152; 99284; C9803; J2704; J3010

== ENCOUNTER 2021-06-26 10:20 | Emergency (ER) | payer OTHER, SELFPAY ==
--- NOTE | 2021-06-26 10:27 | DI.RAD.S_ITS ---
PROCEDURE: XR CHEST 1V INDICATIONS: chest pain TECHNIQUE: One view of the chest was acquired. COMPARISON: [facility], , CHEST 1 VIEW, 07/11/2017, 12:47. FINDINGS: Surgical changes and devices: None. Lungs and pleura: Oval opacities are noted overlying the upper lobes bilaterally. This is likely external to the patient as noted by technologist as related to patient's clothing. Mediastinum: Mediastinal contours appear normal. Heart size is enlarged. Bones and chest wall: No suspicious bony lesions. Overlying soft tissues appear unremarkable. IMPRESSION: No effusions or consolidations. However, portions of the upper lobes are obscured by overlying densities. As clinically indicated, repeat view with clothing or other external source of these densities is recommended as indicated for complete evaluation of the lungs. Dictated by: Adwoa Carcamo M.D. on 06/26/2021 at 11:12 Approved by: Adwoa Carcamo M.D. on 06/26/2021 at 11:14
[2021-06-26 10:54] VITALS: BP 157/75; PULSE 57; RESP 18; TEMP 36.2; O2SAT 100; BMI 40.3
[2021-06-26 11:10] LABS: Add Manual Diff / Slide Review NO; Basophils Absolute Auto 0 /uL (0-100); Basophils Percent Auto 0.8 % (0-2); Eosinophils Absolute Auto 200 /uL (0-450); Eosinophils Percent Auto 4.7 % (2-4); Hematocrit 33.7 % (36-46); Hemoglobin 10.8 g/dL (12.0-16.0); Lymphocytes Absolute Auto 1200 /uL (1100-4500); Lymphocytes Percent Auto 27.7 % (25-40); Mean Corpuscular Volume 81.3 fL (80-100); Monocytes Absolute Auto 400 /uL (0-900); Monocytes Percent Auto 9.4 % (3-14); Neutrophils Absolute Auto 2400 /uL (1500-7000); Neutrophils Percent Auto 57.4 % (50-75); Platelet Count 248 X10^3/uL (150-400); Red Blood Cell Count 4.15 X10^6/uL (4.0-5.2); Red Cell Distribution Width 14.4 % (11.6-14.8); White Blood Cell Count 4.2 X10^3/uL (4.5-11.0)
[2021-06-26 11:21] LABS: Alanine Aminotransferase 23 IU/L (<35); Albumin 3.9 g/dL (3.5-5.0); Albumin Globulin Ratio 1.2 (1.0-2.8); Alkaline Phosphatase 65 U/L (38-126); Aspartate Aminotransferase 27 IU/L (14-36); BUN Creatinine Ratio 22.5 (6-22); Bilirubin Total 0.4 mg/dL (0.2-1.3); Blood Urea Nitrogen 20 mg/dL (7-17); Calcium 8.9 mg/dL (8.4-10.2); Carbon Dioxide 30 mmol/L (22-32); Chloride 108 mmol/L (98-107); Creatine Kinase 111 U/L (30-135); Estimated Glomerular Filt Rate > 60.0 mL/min (>60); Globulin 3.2 g/dL (1.7-4.1); Glucose 108 mg/dL (80-110); HEMOLYSIS < 15 (0-50); Lipase 59 U/L (23-300); Potassium 4.2 mmol/L (3.4-5.1); Sodium 141 mmol/L (137-145); Total Protein 7.1 g/dL (6.3-8.2)
[2021-06-26 11:31] LABS: Troponin I < 0.012 ng/mL (0.01-0.034)
[2021-06-26 11:36] LABS: CKMB % Relative Index 1.2 % (1.5-5.0); Creatine Kinase MB 1.31 ng/mL (<2.37)
--- NOTE | 2021-06-26 13:13 | ED.ARRPALP ---
HPI - Arrhythmia/Palpitations General Chief Complaint: Shortness of Breath/Dyspnea Stated Complaint: hands numb, states poss a-fib Time Seen by Provider: 06/26/21 12:47 Source: patient and old records reviewed Mode of arrival: Ambulatory Limitations: no limitations History of Present Illness HPI narrative: This is a 60-year-old female with known atrial fibrillation who is anticoagulated on Eliquis. Patient was cardioverted here in the emergency department on the 10 of June. She states this morning she had some tingling in her bilateral upper extremities. She states this is been intermittent she has seen PT for this and follow up with her primary care. As about 6:00 a.m. and she had episode of what felt chest discomfort. She denies any shortness of breath the discomfort resolves shortly she has not had any additional. She denies any edema. No numbness or loss of sensation, no weakness in her extremities. She felt a little lightheaded but has not had any syncopal episodes. She checked her blood pressure and she was not hypertensive. She states that she has slightly more tingling on the left than the right upper extremity. She has not had any new medication changes since May. She was concerned she might be in atrial fibrillation so came for evaluation. Related Data Home Medications Medication Instructions Recorded Confirmed apixaban 5 mg tablet (Eliquis) 5 mg PO BID #0 12/21/15 06/15/19 multivitamin (Multiple Vitamins) 1 tab PO QDAY #0 01/30/17 06/15/19 pantoprazole 20 mg tablet,delayed 20 mg PO QDAY #0 01/30/17 06/15/19 release amlodipine 5 mg tablet 5 mg PO DAILY 06/15/19 06/15/19 aripiprazole 2 mg tablet 2 mg PO DAILY 06/15/19 06/15/19 bupropion HCl 300 mg 24 hr tablet, 300 mg PO QAM 06/15/19 06/15/19 extended release dofetilide 125 mcg capsule 125 mcg PO Q12H 06/15/19 06/15/19 lisinopril 40 mg tablet 40 mg PO DAILY 06/15/19 06/15/19 Previous Rx's Medication Instructions Recorded diclofenac sodium 1 % topical gel 2 gram TOP QID PRN #20 gram 02/28/20 (Voltaren) hydrocodone 5 mg-acetaminophen 325 1 tab PO Q6H PRN #10 tab 02/28/20 mg tablet (Rosalie) Allergies Allergy/AdvReac Type Severity Reaction Status Date / Time No Known Drug Allergies Allergy Verified 07/03/19 17:45 Review of Systems Review of Systems ROS Unobtainable: All systems reviewed & are unremarkable except as noted in HPI and below Patient History Medical History Atrial fibrillation Atrial fibrillation with normal ventricular rate Atypical chest pain Chest pain Chronic anticoagulation Hematuria Surgical History H/O cardiac radiofrequency ablation Social History household members: spouse Smoking Status: Never smoker alcohol intake: never Smoking Status: Never smoker alcohol intake frequency: 0-2 drinks per day Substance Use Type: does not use Exam Narrative Exam Narrative: GENERAL: Alert and oriented x three, female in no acute distress. HEENT: Head normocephalic, atraumatic, EOMI, pupils reactive, face symmetric, moist mucous membranes NECK: Supple, full range of motion CARDIOVASCULAR: Regular rate and rhythm without murmurs, rubs or gallops. RESPIRATORY: Breath sounds equal bilaterally, no wheezes rales or rhonchi. ABDOMEN: Soft, nontender. Normoactive bowel sounds all 4 quadrants. No guarding or rebound, rigidity, no mass EXTREMITIES: Normal range of motion, no edema. Neurovascularly intact NEUROLOGICAL: Cranial nerves II through XII grossly intact. Moving all extremities SKIN: Warm, dry, no petechiae, no rashes or lesions. Initial Vital Signs Initial Vital Signs: Vital Signs Temperature 97.1 F L 06/26/21 10:54 Pulse Rate 57 L 06/26/21 10:54 Respiratory Rate 18 06/26/21 10:54 Blood Pressure 157/75 H 06/26/21 10:54 Pulse Oximetry 100 06/26/21 10:54 Course Orders Ordered: ED Orders 06/26/21 10:27 XR chest 1V Stat 06/26/21 10:28 EKG-12 Lead Stat 06/26/21 10:56 Complete Blood Count AUTO DIFF Stat Comprehensive Metabolic Panel Stat Lipase Stat Magnesium Stat Troponin & CK Cardiac Panel Stat Vital Signs Vital signs: Vital Signs - 8 hr 06/26/21 10:54 06/26/21 13:54 Temperature 97.1 F L Pulse Rate 57 L 78 Respiratory Rate 18 17 Blood Pressure 157/75 H 165/77 H Pulse Oximetry 100 95 MDM - Arrhythmia/Palpitations Lab Data Result diagrams: 06/26/21 10:56 06/26/21 10:56 Labs: Lab Results 06/26/21 06/26/21 Range/Units 10:56 10:56 WBC 4.2 L (4.5-11.0) X10^3/uL RBC 4.15 (4.0-5.2) X10^6/uL Hgb 10.8 L (12.0-16.0) g/dL Hct 33.7 L (36-46) % MCV 81.3 (80-100) fL MCH 26.0 (26-34) PG MCHC 32.0 (30-36) % RDW 14.4 (11.6-14.8) % Plt Count 248 (150-400) X10^3/uL Neut % (Auto) 57.4 (50-75) % Lymph % (Auto) 27.7 (25-40) % [place] % (Auto) 9.4 (3-14) % Eos % (Auto) 4.7 H (2-4) % Baso % (Auto) 0.8 (0-2) % Neut # (Auto) 2400 (2737-1673) /uL Lymph # (Auto) 1200 (3553-0304) /uL [place] # (Auto) 400 (0-900) /uL Eos # (Auto) 200 (0-450) /uL Baso # (Auto) 0 (0-100) /uL Sodium 141 (137-145) mmol/L Potassium 4.2 (3.4-5.1) mmol/L Chloride 108 H (98-107) mmol/L Carbon Dioxide 30 (22-32) mmol/L BUN 20 H (7-17) mg/dL Creatinine 0.89 (0.52-1.04) mg/dL Estimated GFR > 60.0 (>60) mL/min BUN/Creatinine Ratio 22.5 H (6-22) Glucose 108 (80-110) mg/dL Calcium 8.9 (8.4-10.2) mg/dL Magnesium 2.0 (1.6-2.3) mg/dL Total Bilirubin 0.4 (0.2-1.3) mg/dL AST 27 (14-36) IU/L ALT 23 (<35) IU/L Alkaline Phosphatase 65 (38-126) U/L Total Creatine Kinase 111 (30-135) U/L CK-MB (CK-2) 1.31 (<2.37) ng/mL CK-MB (CK-2) Rel Index 1.2 L (1.5-5.0) % Troponin I < 0.012 (0.01-0.034) ng/mL Total Protein 7.1 (6.3-8.2) g/dL Albumin 3.9 (3.5-5.0) g/dL Globulin 3.2 (1.7-4.1) g/dL Albumin/Globulin Ratio 1.2 (1.0-2.8) Lipase 59 (23-300) U/L Imaging Data Chest x-ray: Radiologist's Impresson: Launch?Image [address] [address] XRay Report Signed Patient: Aylin Faye MR#: [id number] : 1960 Acct:[id number] Age/Sex: 60 / F Date of Service: 06/26/21 Loc: ED Accession Number: [id number] ?? Procedure: XR chest 1V Ordering Provider: Amy Brown D.O. PROCEDURE:? XR CHEST 1V ? INDICATIONS:? chest pain ? TECHNIQUE:? One view of the chest was acquired.? ? COMPARISON:? [facility], CHEST 1 VIEW, 07/11/2017, 12:47. ? FINDINGS:? ? Surgical changes and devices:? None.? ? Lungs and pleura:? Oval opacities are noted overlying the upper lobes bilaterally.? This is likely external to the patient as noted by technologist as related to patient's clothing. ? Mediastinum:? Mediastinal contours appear normal.? Heart size is enlarged. ? Bones and chest wall:? No suspicious bony lesions.? Overlying soft tissues appear unremarkable.? ? IMPRESSION:? ? No effusions or consolidations.? However, portions of the upper lobes are obscured by overlying densities.? As clinically indicated, repeat view with clothing or other external source of these densities is recommended as indicated for complete evaluation of the lungs. ? ? ? Dictated by: Adwoa Carcamo M.D. on 06/26/2021 at 11:12 ? ? Approved by: Adwoa Carcamo M.D. on 06/26/2021 at 11:14? ECG Data Attestation: I personally reviewed and interpreted this ECG as follows: Prior ECG tracings: available for review Interpretation: Sinus bradycardia with sinus arrhythmia heart rate a rate of 45 OR 160 QRS of 94 and QTC of 401. No acute ST elevation appreciated. Prior from 06/10/21 shows no change. MDM Narrative Medical decision making narrative: 60-year-old female with bilateral upper extremity paresthesias left greater than right that have been longstanding and intermittent that she follows with her primary care in PT for. She had 1 episode of chest discomfort and was concerned that she might be in atrial fibrillation. EKG and monitoring has not show that here in the department she has been sinus bradycardia labs do not show major abnormalities troponin is negative. Chest x-ray shows no acute changes. Patient has prior EKG is consistent with today's. Discharge Plan Departure Patient Disposition: Home Clinical Impression: Palpitation, Paresthesia of upper extremity Activity Restrictions/Additional Instructions: Follow-up with your physician regarding the tingling in your upper extremities suspect this is more related to your neck. Follow-up with your shellfish bed worker at your scheduled appointment. Please return if you have new or worsening chest pain, shortness of breath, lightheadedness or passing out, new swelling in her extremities or other new or concerning symptoms. Prescriptions: No Action Eliquis 5 MG tablet 5 mg PO BID Qty: 0 0RF multivitamin [Multiple Vitamins] 1 EACH tablet 1 tab PO QDAY Qty: 0 0RF pantoprazole 20 MG tablet,delayed release (DR/EC) 20 mg PO QDAY Qty: 0 0RF dofetilide 125 mcg Capsule 125 mcg PO Q12H 0RF amlodipine 5 mg Tablet 5 mg PO DAILY 0RF lisinopril 40 mg Tablet 40 mg PO DAILY 0RF bupropion HCl 300 mg Tablet Extended Release 24 Hr 300 mg PO QAM 0RF aripiprazole 2 mg Tablet 2 mg PO DAILY 0RF hydrocodone-acetaminophen [[place]osal[place]] 5-325 mg tablet 1 tab PO Q6H PRN (Reason: pain) Qty: 10 0RF diclofenac sodium [Voltaren] 1 % gel 2 gram TOP QID PRN (Reason: pain) Qty: 20 0RF Rx Instructions: apply to left shoulder with single hand. Referrals: Ghada Holland MD [Primary Care Provider] -
[2021-06-26 13:54] VITALS: BP 165/77; PULSE 78; RESP 17; O2SAT 95
== END 2021-06-26 13:57 | disposition home or self-care (01) ==
PROVIDERS: Emergency Provider Emergency Medicine; PCP Internal Medicine
DX: R00.2 Palpitations (principal); R00.1 Bradycardia, unspecified; R20.2 Paresthesia of skin
CPT/HCPCS: 36415; 71045; 80053; 82550; 82553; 83690; 83735; 84484; 85025; 93005; 93010; 99284

== ENCOUNTER → 2021-08-28 10:03 | Outpatient (CLI) | payer OTHER, SELFPAY ==
[2021-08-28 13:05] LABS: COVID19 -Nasal RAPID Negative (Negative)
== END ==
PROVIDERS: PCP Internal Medicine; Referring Provider Family Medicine Sleep Medicine; Visit Provider Family Medicine Sleep Medicine
DX: Z20.822 Contact with and (suspected) exposure to COVID-19 (principal)
CPT/HCPCS: 87635; C9803

== ENCOUNTER → 2021-08-29 10:31 | Outpatient (CLI) | payer OTHER, SELFPAY ==
--- NOTE | 2021-08-30 12:05 | PM.TREADMILL ---
Cardiac Stress Test Report Referral & Results Date Patient Seen: 08/30/21 Time Patient Seen: 12:05 Requesting provider: Jose King Indication: atrial fibrillation, chest pain Rest ECG: Sinus bradycardia Procedure Note: After Lexiscan injection, had minimal dyspnea, no chest pain No significant ST changes after Lexiscan injection No ectopy Impression: Normal Lexiscan stress test. Nuclear images pending. Please note: Actual ECG tracings can be found in the PACS system.
--- NOTE | 2021-08-30 19:11 | DI.NM.S_ITS ---
DATE OF SERVICE: 08/29/2021 PROCEDURE PERFORMED: Vasodilator pharmacologic stress and rest myocardial perfusion imaging with gating to assess ejection fraction and regional wall motion. ORDERING PROVIDER: SEFERINO Ortiz. INDICATIONS: The patient is a 60-year-old obese female with a history of paroxysmal atrial fibrillation on Tikosyn with recent atypical chest discomfort. PHARMACOLOGIC STRESS: Per protocol, 0.4 mg of regadenoson was infused with a normal hemodynamic response. She had no chest discomfort or other anginal symptoms. Her resting ECG shows sinus bradycardia with normal ST segments and there are no significant ST-segment shifts or arrhythmias with stress. Per protocol, 23.6 millicuries of technetium-99m Myoview was injected and she was imaged 10 minutes later using a gated SPECT acquisition protocol. The day prior while at rest, she had been injected with 26.3 millicuries of technetium- 99m Myoview and imaged 20 minutes later, again using a gated SPECT acquisition protocol. FINDINGS: 1. Raw data: There is marginal image quality because of the patient's body habitus with obvious, prominent breast attenuation artifact evident. The lung/heart ratio is normal at 0.27 with a normal TID ratio of 1.20. 2. Quantitated gated SPECT: Post-stress ejection fraction is estimated at 67% without any focal wall motion abnormality and specifically the anterior wall appears to have normal contractility. The resting ejection fraction is 69% with a mildly increased end-diastolic volume of 159 mL. 3. Myocardial perfusion imaging: Post-stress supine images show a mild to moderate perfusion defect in the mid anterior wall, consistent with breast attenuation artifact, supported by its complete resolution on the prone images. In addition, there is a very subtle mid inferior wall defect that also nearly completely resolve on the prone images. The resting images show a similar perfusion pattern to that of the post-stress supine images, although with slight improvement in the subtle, small inferior defect. IMPRESSION: 1. Probable normal myocardial perfusion study. 2. Moderate, fixed mid anterior perfusion defect that completely resolves with prone imaging, most consistent with breast attenuation artifact, particularly given the absence of any regional wall motion abnormality. There is a small, subtle mid inferior defect that improves but does not completely resolve on the prone images that likely reflects diaphragmatic attenuation artifact. A very small volume of myocardial ischemia cannot be entirely excluded but is unlikely given its distribution and subtlety. 3. Normal left ventricular systolic function without focal wall motion abnormality and mildly increased left ventricular volumes. 4. No angina or ECG evidence of ischemia with pharmacologic vasodilator stress. Aylin Faye - CHELLE/bailey/gurjit doc#: [id number]/job#: [id number] dd: 08/30/2021 17:58:00 dt: 08/30/2021 18:59:00 DICTATING MD/COPIES TO: Fran Zuñiga MD; SEFERINO Ortiz COPIES MNE: YOSHI;
== END ==
PROVIDERS: PCP Internal Medicine; Referring Provider Nurse Practitioner Family; Visit Provider Nurse Practitioner Family
DX: R07.89 Other chest pain; I48.0 Paroxysmal atrial fibrillation
CPT/HCPCS: 78452; 93017; A9502; J2785

== ENCOUNTER 2021-11-03 18:40 | Emergency (ER) | payer OTHER, SELFPAY ==
[2021-11-03] VITALS (12 sets, daily range): BP systolic 124–138; BP diastolic 58–86; PULSE 57–66; RESP 16–20; TEMP 36.4; O2SAT 94–99; BMI 41.0
--- NOTE | 2021-11-03 18:54 | DI.RAD.S_ITS ---
PROCEDURE: XR CHEST 1V INDICATIONS: chest pain TECHNIQUE: One view of the chest was acquired. COMPARISON: [facility], CR, XR CHEST 1V, 06/26/2021, 10:38. FINDINGS: Surgical changes and devices: None. Lungs and pleura: Lungs are clear. No pleural effusions or pneumothorax. Mediastinum: Mediastinal contours appear normal. Heart size is normal. Bones and chest wall: No suspicious bony lesions. Overlying soft tissues appear unremarkable. IMPRESSION: 1. No acute cardiopulmonary disease. Dictated by: Delfino Boo M.D. on 11/03/2021 at 20:05 Approved by: Delfino Boo M.D. on 11/03/2021 at 20:06
[2021-11-03 19:19] LABS: Add Manual Diff / Slide Review NO; Basophils Absolute Auto 0 /uL (0-100); Basophils Percent Auto 0.6 % (0-2); Eosinophils Absolute Auto 200 /uL (0-450); Eosinophils Percent Auto 4.5 % (2-4); Hematocrit 34.2 % (36-46); Hemoglobin 11.5 g/dL (12.0-16.0); Lymphocytes Absolute Auto 1400 /uL (1100-4500); Lymphocytes Percent Auto 27.5 % (25-40); Mean Corpuscular HGB Conc 33.6 % (30-36); Mean Corpuscular Hemoglobin 26.7 PG (26-34); Mean Corpuscular Volume 79.6 fL (80-100); Monocytes Absolute Auto 500 /uL (0-900); Monocytes Percent Auto 8.8 % (3-14); Neutrophils Absolute Auto 3000 /uL (1500-7000); Neutrophils Percent Auto 58.6 % (50-75); Platelet Count 254 X10^3/uL (150-400); Red Blood Cell Count 4.29 X10^6/uL (4.0-5.2); Red Cell Distribution Width 14.8 % (11.6-14.8); White Blood Cell Count 5.2 X10^3/uL (4.5-11.0)
--- NOTE | 2021-11-03 19:29 | ED_ITS ---
HPI - Arrhythmia/Palpitations <Spring Henson DO - Last Filed: 11/05/21 04:46> General Chief Complaint: Arrhythmia/Palpitations Stated Complaint: A fib x 2 days Time Seen by Provider: 11/03/21 18:45 Source: patient and EMS Mode of arrival: EMS History of Present Illness HPI narrative: Patient is a 61-year-old female history of atrial fibrillation on Eliquis presenting today with an AFib episode. She said this morning she was sleeping when she felt her heart racing. She felt like she was in AFib the lasted for about a minute. Says she has not had any recurrent of her heart palpitations however every time she stands up he feels extremely lightheaded. She does not feel dizzy or nauseous. She has no numbness tingling or weakness. She denies any more chest palpitations. She states that she just does not feel quite right. She denies any fevers or chills. No nausea or vomiting. Related Data Home Medications Medication Instructions Recorded Confirmed apixaban 5 mg tablet (Eliquis) 5 mg PO BID ##0 12/21/15 06/15/19 multivitamin (Multiple Vitamins 1 tab PO QDAY ##0 01/30/17 06/15/19 tablet) pantoprazole 20 mg tablet,delayed 20 mg PO QDAY ##0 01/30/17 06/15/19 release amlodipine 5 mg tablet 5 mg PO DAILY 06/15/19 06/15/19 aripiprazole 2 mg tablet 2 mg PO DAILY 06/15/19 06/15/19 bupropion HCl 300 mg 24 hr tablet, 300 mg PO QAM 06/15/19 06/15/19 extended release dofetilide 125 mcg capsule 125 mcg PO Q12H 06/15/19 06/15/19 lisinopril 40 mg tablet 40 mg PO DAILY 06/15/19 06/15/19 Previous Rx's Medication Instructions Recorded diclofenac sodium 1 % topical gel 2 gram topical QID PRN pain #20 02/28/20 (Voltaren) grams hydrocodone 5 mg-acetaminophen 325 1 tab PO Q6H PRN pain #10 tabs 02/28/20 mg tablet (Whiting) Allergies Allergy/AdvReac Type Severity Reaction Status Date / Time No Known Drug Allergies Allergy Verified 07/03/19 17:45 Review of Systems <Spring Henson DO - Last Filed: 11/05/21 04:46> Review of Systems Narrative: GENERAL: Denies chills, fatigue, malaise, fever, sweats, travel HEENT: Denies sinus pain, ear pain, sore throat, difficulty swallowing, neck pain RESPIRATORY: Denies dyspnea, cough, wheezing, hemoptysis, sputum. CARDIOVASCULAR: See HPI GASTROINTESTINAL: Denies nausea, vomiting, abdominal pain, diarrhea, constipation, melena. : Denies dysuria, frequency, incontinence, hematuria, urinary retention, flank pain. MUSCULOSKELETAL: Denies weakness, joint pain, or bony pain SKIN: No rash, no erythema, no pruritus NEUROLOGIC: See HPI PSYCHIATRIC: No concerning psychosocial issues. 12 point review of systems is negative except for those stated above and HPI Patient History <Spring Henson DO - Last Filed: 11/05/21 04:46> Medical History (Updated 11/03/21 @ 23:29 by Adriano Mclaughlin DO) Atrial fibrillation Atrial fibrillation with normal ventricular rate Atypical chest pain Chest pain Chronic anticoagulation Hematuria Surgical History H/O cardiac radiofrequency ablation Social History household members: spouse Smoking Status: Never smoker alcohol intake: never Smoking Status: Never smoker alcohol intake frequency: 0-2 drinks per day Substance Use Type: does not use Exam <Spring Henson DO - Last Filed: 11/05/21 04:46> Initial Vital Signs Initial Vital Signs: Vital Signs Temperature 97.5 F L 11/03/21 18:49 Pulse Rate 66 11/03/21 18:49 Respiratory Rate 18 11/03/21 18:49 Blood Pressure 130/60 11/03/21 18:49 Pulse Oximetry 99 11/03/21 18:49 Oxygen Delivery Method 11/03/21 18:49 GENERAL: Alert well-appearing 61-year-old female and in [no acute] distress. HEENT: Head atraumatic,EOMI, pupils reactive, face symmetric, [moist] mucous membranes CARDIOVASCULAR: Regular rate and rhythm without murmurs, rubs or gallops. RESPIRATORY: Breath sounds equal bilaterally, no wheezes rales or rhonchi. ABDOMEN: Soft, nontender. Normoactive bowel sounds all 4 quadrants. No guarding or rebound. EXTREMITIES: Normal range of motion, no clubbing or edema. Neurovascularly intact NEUROLOGICAL: Alert and oriented x4.Normal gait and speech. Cranial nerves II through XII grossly intact. [Good [id number], good [id number], strength equal bilaterally, no dysarthria or aphasia, sensation in tact to soft touch bilaterally, no visual changes, no facial droop] SKIN: Warm, dry, no laceration, no petechiae, no rashes or lesions. <Adriano Mclaughlin DO - Last Filed: 11/03/21 23:29> Initial Vital Signs Initial Vital Signs: Vital Signs Temperature 97.5 F L 11/03/21 18:49 Pulse Rate 66 11/03/21 18:49 Respiratory Rate 18 11/03/21 18:49 Blood Pressure 130/60 11/03/21 18:49 Pulse Oximetry 99 11/03/21 18:49 Oxygen Delivery Method 11/03/21 18:49 Scores <Spring Henson DO - Last Filed: 11/05/21 04:46> NIH Stroke Scale Level of Conciousness: Alert, keenly responsive Ask month/age: Answers both questions correctly. Open/close eyes, close hand: Performs both tasks correctly Best gaze horizontal: Normal Visual velarde: No visual loss Facial palsy: Normal symetrical movement Left arm drift: No drift for full 10 sec Right arm drift: No drift for full 10 sec Left leg drift: No drift for full 5 sec Right leg drift: No drift for full 5 sec Limb ataxia: Absent Sensory on face/arms/legs: Normal, no sensory loss Best language: No aphasia, normal Dysarthria: Normal Extinction or inattention: No abnormality Total NIH Stroke scale score: 0 <DO Ada Ramachandran Last Filed: 11/03/21 23:29> NIH Stroke Scale Total NIH Stroke scale score: 0 Course <DO Ada Irizarry Last Filed: 11/05/21 04:46> Orders Ordered: Discontinued Medications Sodium Chloride (Normal Saline 0.9%) 1,000 mls @ 1,000 mls/hr IV BOLUS ONE Stop: 11/03/21 22:25 Last Infusion: 11/03/21 23:32 Dose: 0 mls/hr Documented By: Admin: 11/03/21 21:43 Dose: 1,000 mls/hr Documented By: CHRISTIAN Vital Signs Vital signs: Vital Signs - 8 hr 11/03/21 18:49 11/03/21 19:58 11/03/21 20:00 Temperature 97.5 F L Pulse Rate 66 59 L 59 L Respiratory Rate 18 Blood Pressure 130/60 Pulse Oximetry 99 97 98 Oxygen Delivery Method Room Air 11/03/21 20:01 11/03/21 20:01 11/03/21 20:30 Temperature Pulse Rate 63 59 L Respiratory Rate 20 19 Blood Pressure 130/62 Pulse Oximetry 98 94 Oxygen Delivery Method Room Air 11/03/21 20:31 11/03/21 20:31 11/03/21 21:00 Temperature Pulse Rate 60 58 L Respiratory Rate 19 Blood Pressure 126/58 L Pulse Oximetry 94 97 Oxygen Delivery Method 11/03/21 21:01 11/03/21 21:01 11/03/21 21:56 Temperature Pulse Rate 58 L 57 L Respiratory Rate Blood Pressure 124/61 Pulse Oximetry 97 97 Oxygen Delivery Method 11/03/21 22:00 11/03/21 22:30 Temperature Pulse Rate 61 Respiratory Rate 18 Blood Pressure Pulse Oximetry 98 99 Oxygen Delivery Method <Adriano Mclaughlin DO - Last Filed: 11/03/21 23:29> Orders Ordered: Discontinued Medications Sodium Chloride (Normal Saline 0.9%) 1,000 mls @ 1,000 mls/hr IV BOLUS ONE Stop: 11/03/21 22:25 Last Infusion: 11/03/21 23:32 Dose: 0 mls/hr Documented By: Admin: 11/03/21 21:43 Dose: 1,000 mls/hr Documented By: CHRISTIAN Vital Signs Vital signs: Vital Signs - 8 hr 11/03/21 18:49 11/03/21 19:58 11/03/21 20:00 Temperature 97.5 F L Pulse Rate 66 59 L 59 L Respiratory Rate 18 Blood Pressure 130/60 Pulse Oximetry 99 97 98 Oxygen Delivery Method Room Air 11/03/21 20:01 11/03/21 20:01 11/03/21 20:30 Temperature Pulse Rate 63 59 L Respiratory Rate 20 19 Blood Pressure 130/62 Pulse Oximetry 98 94 Oxygen Delivery Method Room Air 11/03/21 20:31 11/03/21 20:31 11/03/21 21:00 Temperature Pulse Rate 60 58 L Respiratory Rate 19 Blood Pressure 126/58 L Pulse Oximetry 94 97 Oxygen Delivery Method 11/03/21 21:01 11/03/21 21:01 11/03/21 21:56 Temperature Pulse Rate 58 L 57 L Respiratory Rate Blood Pressure 124/61 Pulse Oximetry 97 97 Oxygen Delivery Method 11/03/21 22:00 11/03/21 22:30 Temperature Pulse Rate 61 Respiratory Rate 18 Blood Pressure Pulse Oximetry 98 99 Oxygen Delivery Method MDM - Arrhythmia/Palpitations <Spring Henson, - Last Filed: 11/05/21 04:46> Lab Data Result diagrams: 11/03/21 18:57 11/03/21 18:57 Labs: Lab Results 11/03/21 11/03/21 Range/Units 18:57 18:57 WBC 5.2 (4.5-11.0) X10^3/uL RBC 4.29 (4.0-5.2) X10^6/uL Hgb 11.5 L (12.0-16.0) g/dL Hct 34.2 L (36-46) % MCV 79.6 L (80-100) fL MCH 26.7 (26-34) PG MCHC 33.6 (30-36) % RDW 14.8 (11.6-14.8) % Plt Count 254 (150-400) X10^3/uL Neut % (Auto) 58.6 (50-75) % Lymph % (Auto) 27.5 (25-40) % [place] % (Auto) 8.8 (3-14) % Eos % (Auto) 4.5 H (2-4) % Baso % (Auto) 0.6 (0-2) % Neut # (Auto) 3000 (3100-6064) /uL Lymph # (Auto) 1400 (2688-2019) /uL [place] # (Auto) 500 (0-900) /uL Eos # (Auto) 200 (0-450) /uL Baso # (Auto) 0 (0-100) /uL Sodium 141 (137-145) mmol/L Potassium 3.5 (3.4-5.1) mmol/L Chloride 105 (98-107) mmol/L Carbon Dioxide 30 (22-32) mmol/L BUN 26 H (7-17) mg/dL Creatinine 0.96 (0.52-1.04) mg/dL Estimated GFR > 60 (>60) mL/min BUN/Creatinine Ratio 27.1 H (6-22) Glucose 118 H (80-110) mg/dL Calcium 8.7 (8.4-10.2) mg/dL Magnesium 2.0 (1.6-2.3) mg/dL Total Bilirubin 0.4 (0.2-1.3) mg/dL AST 28 (14-36) IU/L ALT 20 (<35) IU/L Alkaline Phosphatase 66 (38-126) U/L Total Creatine Kinase 145 H (30-135) U/L CK-MB (CK-2) 1.67 (<2.37) ng/mL CK-MB (CK-2) Rel Index 1.2 L (1.5-5.0) % Troponin I < 0.012 (0.01-0.034) ng/mL Total Protein 7.5 (6.3-8.2) g/dL Albumin 4.1 (3.5-5.0) g/dL Globulin 3.4 (1.7-4.1) g/dL Albumin/Globulin Ratio 1.2 (1.0-2.8) Lipase 94 (23-300) U/L Imaging Data Chest x-ray: Radiologist's Impresson: ROSA Lewis [id number] XRay Report Signed Patient: Aylin Faye MR#: [id number] : 1960 Acct:[id number] Age/Sex: 61 / F Date of Service: 11/03/21 Loc: ED Accession Number: [id number] ?? Procedure: XR chest 1V Ordering Provider: Spring Henson D.O. PROCEDURE:? XR CHEST 1V ? INDICATIONS:? chest pain ? TECHNIQUE:? One view of the chest was acquired.? ? COMPARISON:? [facility], , XR CHEST 1V, 06/26/2021, 10:38. ? FINDINGS:? ? Surgical changes and devices:? None.? ? Lungs and pleura:? Lungs are clear.? No pleural effusions or pneumothorax.? ? Mediastinum:? Mediastinal contours appear normal.? Heart size is normal.? ? Bones and chest wall:? No suspicious bony lesions.? Overlying soft tissues appea r unremarkable.? ? IMPRESSION:? ? 1.? No acute cardiopulmonary disease. ? ? ? Dictated by: Delfino Boo M.D. on 11/03/2021 at 20:05 ? ? CT scan - head: Radiologist's Impresson: Accession Number: [id number] ?? Procedure: CT head/brain wo con Ordering Provider: Spring Henson D.O. PROCEDURE:? CT HEAD/BRAIN WO CON ? INDICATIONS:? dizzy on eliquis ? TECHNIQUE:? Noncontrast 4.5 mm thick angled axial sections acquired from the foramen magnum to the vertex, with coronal and sagittal reformats.? For radiation dose reduction, the following was used:? automated exposure control, adjustment of mA and/or kV according to patient size.? ? COMPARISON:? None. ? FINDINGS:? Image quality:? Excellent.? ? CSF spaces:? Basal cisterns are patent.? No extra-axial fluid collections.? Ventricles are normal in size and shape.? ? Brain:? No intracranial hemorrhage, mass, or mass effect.? Wilson-white matter interface appears preserved.? There is minimal dystrophic calcification in the basal ganglia bilaterally.? ? Skull and face:? Calvarium and visualized facial bones are intact, without suspicious lesions.? ? Sinuses:? Visualized sinuses and mastoids are clear.? ? IMPRESSION:? ? 1. No acute intracranial abnormality.? ? ? Dictated by: Delfino Boo M.D. on 11/03/2021 at 21:29 ? ? ECG Data Interpretation: Normal sinus rhythm rate 62 [place] interval 180 QRS [address] changes no T- wave inversion MDM Narrative Medical decision making narrative: Patient had a brief episode of AFib that has been in normal sinus rhythm in the ED. She is on Eliquis feels a little dizzy when she stands up. Head CT is negative and a stroke scale is negative. Blood work and vitals are overall reassuring. He is given 1 L of fluid. Reassess an ambulation trial plant for the ED. Patient signed out to Dr. Mclaughlin. <Adriano Mclaughlin DO - Last Filed: 11/03/21 23:29> Lab Data Labs: Lab Results 11/03/21 11/03/21 Range/Units 18:57 18:57 WBC 5.2 (4.5-11.0) X10^3/uL RBC 4.29 (4.0-5.2) X10^6/uL Hgb 11.5 L (12.0-16.0) g/dL Hct 34.2 L (36-46) % MCV 79.6 L (80-100) fL MCH 26.7 (26-34) PG MCHC 33.6 (30-36) % RDW 14.8 (11.6-14.8) % Plt Count 254 (150-400) X10^3/uL Neut % (Auto) 58.6 (50-75) % Lymph % (Auto) 27.5 (25-40) % [place] % (Auto) 8.8 (3-14) % Eos % (Auto) 4.5 H (2-4) % Baso % (Auto) 0.6 (0-2) % Neut # (Auto) 3000 (7501-9506) /uL Lymph # (Auto) 1400 (1060-4342) /uL [place] # (Auto) 500 (0-900) /uL Eos # (Auto) 200 (0-450) /uL Baso # (Auto) 0 (0-100) /uL Sodium 141 (137-145) mmol/L Potassium 3.5 (3.4-5.1) mmol/L Chloride 105 (98-107) mmol/L Carbon Dioxide 30 (22-32) mmol/L BUN 26 H (7-17) mg/dL Creatinine 0.96 (0.52-1.04) mg/dL Estimated GFR > 60 (>60) mL/min BUN/Creatinine Ratio 27.1 H (6-22) Glucose 118 H (80-110) mg/dL Calcium 8.7 (8.4-10.2) mg/dL Magnesium 2.0 (1.6-2.3) mg/dL Total Bilirubin 0.4 (0.2-1.3) mg/dL AST 28 (14-36) IU/L ALT 20 (<35) IU/L Alkaline Phosphatase 66 (38-126) U/L Total Creatine Kinase 145 H (30-135) U/L CK-MB (CK-2) 1.67 (<2.37) ng/mL CK-MB (CK-2) Rel Index 1.2 L (1.5-5.0) % Troponin I < 0.012 (0.01-0.034) ng/mL Total Protein 7.5 (6.3-8.2) g/dL Albumin 4.1 (3.5-5.0) g/dL Globulin 3.4 (1.7-4.1) g/dL Albumin/Globulin Ratio 1.2 (1.0-2.8) Lipase 94 (23-300) U/L MDM Narrative Medical decision making narrative: Patient had a brief episode of AFib that has been in normal sinus rhythm in the ED. She is on Eliquis feels a little dizzy when she stands up. Head CT is negative and a stroke scale is negative. Blood work and vitals are overall reassuring. He is given 1 L of fluid. Reassess an ambulation trial plant for the ED. Patient signed out to Dr. Mclaughlin. Dr Mclaughlin: Received turned over. Patient has been in sinus rhythm since she has been under my care. I did review her records. I introduced myself to the patient. We went over her lab results. She states that normally her heart rate is in the 50s/60s. Will have her continue all of her medications as directed. She was given return precautions. She expressed understanding and agreement. Discharge Plan Departure Patient Disposition: Home Clinical Impression: Atrial fibrillation Instructions: DI for Arrhythmias Activity Restrictions/Additional Instructions: Recommend that you continue to take all of your medications as directed. Keep your scheduled appointment next week with your cardiology group. Return to the emergency department for any new or worsening symptoms. Prescriptions: No Action Eliquis 5 MG tablet 5 mg PO BID Qty: 0 multivitamin [Multiple Vitamins] 1 EACH tablet 1 tab PO QDAY Qty: 0 pantoprazole 20 MG tablet,delayed release (DR/EC) 20 mg PO QDAY Qty: 0 dofetilide 125 mcg Capsule 125 mcg PO Q12H amlodipine 5 mg Tablet 5 mg PO DAILY lisinopril 40 mg Tablet 40 mg PO DAILY bupropion HCl 300 mg Tablet Extended Release 24 Hr 300 mg PO QAM aripiprazole 2 mg Tablet 2 mg PO DAILY hydrocodone-acetaminophen [Whiting] 5-325 mg tablet 1 tab PO Q6H PRN (Reason: pain) Qty: 10 0RF diclofenac sodium [Voltaren] 1 % gel 2 gram TOP QID PRN (Reason: pain) Qty: 20 0RF Rx Instructions: apply to left shoulder with single hand. Referrals: Ghada Holland MD [Primary Care Provider] - Visit Report Forms: Patient Portal/API
[2021-11-03 19:31] LABS: Alanine Aminotransferase 20 IU/L (<35); Albumin 4.1 g/dL (3.5-5.0); Albumin Globulin Ratio 1.2 (1.0-2.8); Alkaline Phosphatase 66 U/L (38-126); Aspartate Aminotransferase 28 IU/L (14-36); BUN Creatinine Ratio 27.1 (6-22); Bilirubin Total 0.4 mg/dL (0.2-1.3); Blood Urea Nitrogen 26 mg/dL (7-17); Calcium 8.7 mg/dL (8.4-10.2); Carbon Dioxide 30 mmol/L (22-32); Chloride 105 mmol/L (98-107); Creatine Kinase 145 U/L (30-135); Estimated Glomerular Filt Rate > 60 mL/min (>60); Globulin 3.4 g/dL (1.7-4.1); Glucose 118 mg/dL (80-110); HEMOLYSIS < 15 (0-50); Lipase 94 U/L (23-300); Potassium 3.5 mmol/L (3.4-5.1); Sodium 141 mmol/L (137-145); Total Protein 7.5 g/dL (6.3-8.2)
[2021-11-03 19:42] LABS: Troponin I < 0.012 ng/mL (0.01-0.034)
[2021-11-03 19:46] LABS: CKMB % Relative Index 1.2 % (1.5-5.0); Creatine Kinase MB 1.67 ng/mL (<2.37)
--- NOTE | 2021-11-03 20:48 | DI.CT.S_ITS ---
PROCEDURE: CT HEAD/BRAIN WO CON INDICATIONS: dizzy on eliquis TECHNIQUE: Noncontrast 4.5 mm thick angled axial sections acquired from the foramen magnum to the vertex, with coronal and sagittal reformats. For radiation dose reduction, the following was used: automated exposure control, adjustment of mA and/or kV according to patient size. COMPARISON: None. FINDINGS: Image quality: Excellent. CSF spaces: Basal cisterns are patent. No extra-axial fluid collections. Ventricles are normal in size and shape. Brain: No intracranial hemorrhage, mass, or mass effect. Wilson-white matter interface appears preserved. There is minimal dystrophic calcification in the basal ganglia bilaterally. Skull and face: Calvarium and visualized facial bones are intact, without suspicious lesions. Sinuses: Visualized sinuses and mastoids are clear. IMPRESSION: 1. No acute intracranial abnormality. Dictated by: Delfino Boo M.D. on 11/03/2021 at 21:29 Approved by: Delfino Boo M.D. on 11/03/2021 at 21:30
[2021-11-03] MEDS: SODIUM CHLORIDE 0.9% 1,000 ML 1000 ML IV (21:43)
== END 2021-11-03 23:40 | disposition home or self-care (01) ==
PROVIDERS: Emergency Medicine; Emergency Provider Emergency Medicine; PCP Internal Medicine
DX: I48.91 Unspecified atrial fibrillation (principal); R42 Dizziness and giddiness; R07.9 Chest pain, unspecified; Z79.01 Long term (current) use of anticoagulants
CPT/HCPCS: 36415; 70450; 71045; 80053; 82550; 82553; 83690; 83735; 84484; 85025; 93005; 93010; 96360; 96361; 99284